=== PATIENT | male | born 1995 | race African-American/Black ===

== ENCOUNTER 2018-01-30 23:10 | Emergency (ER) | payer MEDICAID ==
[~2018-01-30] VITALS: Ht 177.8 cm; Wt 99.8 kg
[2018-01-30 23:19] VITALS: BP_SYST 120
[2018-01-31] MEDS ORDERED: CYCLOBENZAPRINE HCL 10 MG TABLET (FLEXERIL) PO ONE (00:15)
[2018-01-31] MEDS ORDERED: DEXAMETHASONE SOD PHOSPHATE 10 MG/ML VIAL IM ONE (00:15)
[2018-01-31] MEDS ORDERED: KETOROLAC TROMETHAMINE 60 MG/2 ML VIAL IM ONE (00:15)
[2018-01-31] MEDS ORDERED: HYDROcodone/ACETAMIN 10-325 MG TAB PO ONE (01:00)
[2018-01-31 02:20] VITALS: BP_SYST 131
== END 2018-01-31 02:20 | disposition home or self-care (01) ==
LOC: SED 23:10
DX: M62.830 Muscle spasm of back (principal)
CPT/HCPCS: 96372; 99284; J1100; J1885